=== PATIENT | male | born 1980 | race Caucasian/White ===

== ENCOUNTER 2023-10-12 20:09 | Inpatient (IN) ==
[2023-10-12] MEDS ORDERED: dilTIAZem HCl 5 MG/ML 5 ML VIAL IV ONE (20:52)
[2023-10-12 21:14] LABS: Albumin Globulin Ratio 1.7 (0.9-2); Albumin Level 5.2 gm/dl (3.4-5.0); BUN Creatinine Ratio 15.5 (10-20); Bilirubin,Total 0.3 mg/dl (0.2-1.0); Creatinine Clr Calc Pharmacy 109.7 ml/min; Est GFR (African American) 104.1 ml/min; Est GFR (Non-African American) 89.8 ml/min; Globulin 3.1 gm/dl (2.5-4.0); Potassium 3.5 mmol/L (3.5-5.1); Total Protein 8.3 gm/dl (6.0-8.3)
[2023-10-12 21:32] LABS: Troponin I High Sensitivity 3.7 pg/ml (0-20)
[2023-10-12] MEDS ORDERED: dilTIAZem HCl 5 MG/ML 5 ML VIAL IV STA (21:33)
[2023-10-12] MEDS ORDERED: STAT IV Infusion **Titration per Protocol STA (21:33)
[2023-10-12 21:35] LABS: Basophils # (auto) 0.04 K/uL (0.00-0.20); Basophils % (auto) 0.4 %; Eosinophils # (auto) 0.24 K/uL (0.00-0.50); Eosinophils % (auto) 2.4 %; Hematocrit (blood only) 45.9 % (42.0-52.0); Hemoglobin 15.9 g/dl (14.0-18.0); Immature Granulocytes # (auto) 0.02 K/uL (0.01-0.20); Immature Granulocytes % (auto) 0.2 %; Lymphocytes # (auto) 3.15 K/uL (1.20-3.40); Lymphocytes % (auto) 31.9 %; Mean Corpuscular Hemoglobin 30.6 pg (25.0-34.0); Mean Corpuscular Hgb Conc 34.6 g/dL (32.0-36.0); Mean Corpuscular Volume 88.4 fL (80.0-100.0); Mean Platelet Volume 9.3 fL (9.4-12.4); Monocytes % (auto) 8.1 %; Neutrophils # (auto) 5.64 K/uL (1.40-6.50); Platelet Count 335 K/uL (130-400); RDW Coefficient of Variation 12.1 % (11.5-14.5); RDW Standard Deviation 39.8 fL (36.4-46.3); Red Blood Count 5.19 M/uL (4.70-6.10); White Blood Count 9.89 K/ul (4.8-10.8)
[2023-10-12] MEDS ORDERED: POTASSIUM CHLORIDE / WTR 10 MEQ/100 ML PLCT IV ONE (21:35)
[2023-10-12 21:44] LABS: INR 0.9 (0.9-1.1); Partial Thromboplastin Ratio 0.9; Partial Thromboplastin Time 25.6 Seconds (21.0-31.0); Prothrombin Time 10.2 Seconds (9.0-12.0)
[2023-10-12] MEDS: dilTIAZem HCL 125 MG in DEXTROSE 5% 100 ML IV SCH (21:58)
--- NOTE | 2023-10-12 23:20 | History & Physical Report ---
Date of Service October 12, 2023 Assessment & Plan (1) Rapid atrial fibrillation: Plan: 42M with past med history significant for migraines, presents with palpitations found to be in rapid A-fib. Rapid A-fib New onset ER started on Cardizem drip which will be continued We will start on IV heparin while patient in the hospital Monitoring telemetry Serial cardiac enzymes and echocardiogram Consult cardiology in a.m. DVT prophylaxis IV heparin Disposition telemetry floor Full code History of Present Illness Chief Complaint: Rapid A-fib Primary Care Provider: Art Patel MD 42-year-old male with past med history significant for migraines, presents with palpitations and found to be in rapid A-fib. Patient states around 7 PM he noticed palpitations and felt some lightheaded and as they were not subsiding came to the ER. No chest pain or shortness of breath. No cough. No fevers. No nausea. No abdominal pain. Normal bowel and bladder movements. No blood in the stools or hematuria. Patient states about a year ago he had palpitations and also 1 more time in between but this time they persisted longer time so came to the ER. Had couple of beers yesterday. He states he noticed it happens when he drinks alcohol. Says he jogs every day in the morning Past medical history. As mentioned above Past surgical history. Dental surgery. Social history. . No smoking. Alcohol rarely. Family history. Mother had atrial fibrillation. Brother has hypertension. Maternal grandfather had MN. Paternal grandfather had MN. Allergies Allergy/AdvReac Type Severity Reaction Status Date / Time Penicillins Allergy Intermediate RASH Verified 10/12/23 21:22 Home Medications Medication Instructions Recorded Confirmed Type No Known Home Medications 10/12/23 10/12/23 History Past Med/Surg History Social History Smoking Status: Current some day smoker Hx Alcohol Use: No Hx Substance Use: No Preferred Language: Hebrew Communication Ability: Effective Replenishment Associate Required: No Beliefs That Will Affect Care: None Current Living Situation: Family Feels Safe at Home: Yes Review of Systems Review of Systems: All systems reviewed & are unremarkable except as noted in HPI & below Physical Exam Physical Exam: General- not in distress. Head- atraumatic Eyes- PERRL. ENT- oropharynx clear Neck- supple, no JVD. Lungs- clear to auscultation, no wheezing or crackles. Heart- irregular rhythm;tachycardia, no murmur, no gallop. Abdomen- normal bowel sounds, soft, nontender, no distension. Extremities- no pretibial edema, no erythema seen. Neuro- alert, oriented x 3; PERRL, no facial palsy; no dysarthria; moves extremities. Skin- warm & dry Results & Data Results & Data Vital Signs (Past 12 Hours) Vital Signs Temp Pulse Pulse Resp BP BP Pulse Ox 10/12/23 22:44 139 H 19 126/96 98 10/12/23 22:36 135 H 19 126/96 97 10/12/23 22:14 147 H 19 131/87 97 10/12/23 22:03 146 H 19 109/81 98 10/12/23 21:02 167 H 19 120/87 100 10/12/23 20:50 156 H 10/12/23 20:27 36.3 C L 101 H 20 129/78 98 O2 Del Method 10/12/23 22:44 Room Air 10/12/23 22:36 Room Air 10/12/23 22:14 Room Air 10/12/23 22:03 Room Air 10/12/23 21:02 Room Air 10/12/23 20:50 10/12/23 20:27 Room Air Diagnostic Findings Laboratory Results WBC 9.89 K/ul (4.8-10.8) 10/12/23 20:40 RBC 5.19 M/uL (4.70-6.10) 10/12/23 20:40 Hgb 15.9 g/dl (14.0-18.0) 10/12/23 20:40 Hct 45.9 % (42.0-52.0) 10/12/23 20:40 MCV 88.4 fL (80.0-100.0) 10/12/23 20:40 MCH 30.6 pg (25.0-34.0) 10/12/23 20:40 MCHC 34.6 g/dL (32.0-36.0) 10/12/23 20:40 RDW Std Deviation 39.8 fL (36.4-46.3) 10/12/23 20:40 RDW Coeff of Pia 12.1 % (11.5-14.5) 10/12/23 20:40 Plt Count 335 K/uL (130-400) 10/12/23 20:40 MPV 9.3 fL (9.4-12.4) L 10/12/23 20:40 Immature Gran % (Auto) 0.2 % 10/12/23 20:40 Neut % (Auto) 57.0 % 10/12/23 20:40 Lymph % (Auto) 31.9 % 10/12/23 20:40 [place] % (Auto) 8.1 % 10/12/23 20:40 Eos % (Auto) 2.4 % 10/12/23 20:40 Baso % (Auto) 0.4 % 10/12/23 20:40 Neut # (Auto) 5.64 K/uL (1.40-6.50) 10/12/23 20:40 Lymph # (Auto) 3.15 K/uL (1.20-3.40) 10/12/23 20:40 [place] # (Auto) 0.80 K/uL (0.11-0.59) H 10/12/23 20:40 Eos # (Auto) 0.24 K/uL (0.00-0.50) 10/12/23 20:40 Baso # (Auto) 0.04 K/uL (0.00-0.20) 10/12/23 20:40 Immature Gran # (Auto) 0.02 K/uL (0.01-0.20) 10/12/23 20:40 PT 10.2 Seconds (9.0-12.0) 10/12/23 20:40 INR 0.9 (0.9-1.1) 10/12/23 20:40 APTT 25.6 Seconds (21.0-31.0) 10/12/23 20:40 PTT Ratio 0.9 10/12/23 20:40 Sodium 140 mmol/L (136-145) 10/12/23 20:40 Potassium 3.5 mmol/L (3.5-5.1) 10/12/23 20:40 Chloride 104 mmol/L (98-107) 10/12/23 20:40 Carbon Dioxide 25 mmol/L (21-32) 10/12/23 20:40 Anion Gap 11 (3-11) 10/12/23 20:40 BUN 16 mg/dl (6-23) 10/12/23 20:40 Creatinine 1.03 mg/dl (0.6-1.4) 10/12/23 20:40 Est Cr Clr Drug Dosing 109.7 ml/min 10/12/23 20:40 Est GFR ( Amer) 104.1 ml/min 10/12/23 20:40 Est GFR (Non-Af Amer) 89.8 ml/min 10/12/23 20:40 BUN/Creatinine Ratio 15.5 (10-20) 10/12/23 20:40 Glucose 89 mg/dl (70-99(Fasting)) 10/12/23 20:40 Calcium 10.0 mg/dl (8.6-10.3) 10/12/23 20:40 Magnesium 2.0 mg/dl (1.7-2.4) 10/12/23 20:40 Total Bilirubin 0.3 mg/dl (0.2-1.0) 10/12/23 20:40 AST 20 U/L (13-39) 10/12/23 20:40 ALT 16 U/L (7-52) 10/12/23 20:40 Alkaline Phosphatase 83 U/L (34-104) 10/12/23 20:40 Troponin I High Sens 3.7 pg/ml (0-20) 10/12/23 20:40 Total Protein 8.3 gm/dl (6.0-8.3) 10/12/23 20:40 Albumin 5.2 gm/dl (3.4-5.0) H 10/12/23 20:40 Globulin 3.1 gm/dl (2.5-4.0) 10/12/23 20:40 Albumin/Globulin Ratio 1.7 (0.9-2) 10/12/23 20:40 ECG Additional Comments: ECG. Atrial fibrillation with rapid ventricular response rate of 154. ST depression inferior leads Code Status & VTE Plan VTE Prophylaxis Plan VTE Prophylaxis will be ordered: Yes
[2023-10-13] MEDS ORDERED: POLYETHYLENE (MIRALAX) 17 GM PACK PO PRN (00:30)
[2023-10-13] MEDS ORDERED: NITROGLYCERIN SL 0.4 MG/TAB TAB SL PRN (00:30)
[2023-10-13] MEDS ORDERED: dilTIAZem HCL 125 MG in DEXTROSE 5% 100 ML IV SCH (00:30)
[2023-10-13] MEDS ORDERED: STAT IV Infusion **Titration per Protocol STA (00:30)
[2023-10-13] MEDS ORDERED: SODIUM CHLORIDE 0.9% 1,000 ML IV SCH (00:30)
[2023-10-13] MEDS ORDERED: Heparin IV Adult Wt-Based Standard *NO* Bolus Protocol IV STA (00:30)
[2023-10-13] MEDS ORDERED: ACETAMINOPHEN 325 MG TAB PO PRN (00:30)
--- NOTE | 2023-10-13 00:40 | Emergency Department Note ---
Impression & Plan Rapid atrial fibrillation ED Provider Note NAME: LIZ ISAAC AGE: 42 SEX: Male INFORMANT: Patient ED PROVIDER(S): Harrison Ivey MD CHIEF COMPLAINT: Palpitation PLAN: Disposition: Admitted Outpatient prescription management: none Referral: None MEDICAL DECISION MAKING: Patient presented because of palpitations. Cardiac monitoring and ECG revealed presence of rapid atrial fibrillation. Patient blood work obtained. Unremarkable CBC and chemistry panel except for a low normal potassium. Patient was given IV potassium and started on the IV Cardizem bolus and drip. This required titration for rate control. Patient has unremarkable labs otherwise. He will need further management in the hospital. Patient in agreement. Consultation was [facility] with the [facility]. Case was discussed and diagnostics were reviewed with Dr. Cobb. Consideration for anticoagulation deferred to internal medicine. Care/management discussed with: email marketing manager Level of care consideration(s): After review of the information above and other included data, I feel the patient requires escalation of care to admission. Triage Nursing notes: reviewed and agree them. Vital Signs: reviewed and remarkable for significant tachycardia Additional History obtained from: none Chronic Medical/Social Conditions affecting care: none Prior/ Outside/ External records reviewed: none Differential Diagnosis: Premature contractions, electrolyte abnormality, cardiac dysrhythmia, thyroid dysfunction, pulmonary embolism, infection, gastrointestinal, as well as other pathologies. Diagnostics, independently interpreted by me: ECG: Twelve-lead ECG reveals rapid atrial fibrillation at a rate of [address] elevation. Cardiac Monitoring: Cardiac monitoring ordered by me: The patient was placed on continuous cardiac monitoring and observed. It revealed a rapid atrial fibrillation at 178 bpm Medical decision rules: none Imaging studies: Chest x-ray. Findings: A chest x-ray was performed and revealed no pneumothorax, effusion, infiltrate, pulmonary edema, free air under the diaphragm, or wide mediastinum. Impression: No acute disease. HPI: 42 year old Male arrives for evaluation of palpitations. Patient states this started today. Approximate about 7 PM. Patient notes a few intermittent episodes in the past. Patient does note having some alcohol yesterday and again today. Patient felt somewhat lightheaded. He felt his heart racing. Symptoms today did not go away so he came to the ER for further evaluation. Pt denies LOC, headache, fevers, chills, diaphoresis, visual changes, neck pain, chest pain, breathing difficulties, nausea, vomiting, abdominal pain, back pain, melena, hematochezia, urinary symptoms, numbness, weakness, lymphadenopathy, rash, or other complaints. PAST MEDICAL HISTORY: See Below, PAST SURGICAL HISTORY: See Below, SOCIAL HISTORY: See Below, occasional alcohol. . HOME MEDICATIONS: See Below ALLERGIES: See Below VITALS: See Below PHYSICAL EXAMINATION: GENERAL: Awake, alert, well-appearing, in no distress HENT: Normocephalic, atraumatic. Oropharynx unremarkable. EYES: Normal conjunctiva. Sclera non-icteric. NECK: Inspection normal. Non-tender. Supple. No nuchal rigidity. FROM. No masses. RESPIRATORY: Clear to auscultation. No wheezes. No rales. Normal respiratory effort. CARDIAC: Tachycardic rate. Irregular rhythm. No murmurs. No rubs. Extremities warm and well perfused. Pulses equal. No JVD. GI: Soft, non-distended. No tenderness to palpation. No rebound or guarding. No masses. RECTAL: Deferred. MUSCULOSKELETAL: Atraumatic. Chest examination reveals no tenderness. The back is symmetrical on inspection without obvious abnormality. There is no CVA tenderness to palpation. No joint edema. LOWER EXTREMITIES: Calves are equal size bilaterally and non-tender. No edema. No discoloration. NEURO: Normal sensorium. No sensory or motor deficits noted. SKIN: No rash or jaundice noted. PROCEDURES: none CRITICAL CARE: I have personally spent 30 minutes of critical care time in the direct management of this patient. This includes bedside care, interpretation of diagnostic studies, and testing, discussion with consultants, patient, and family members, and other required patient management activities. This 30 minutes is in excess of all separately billable procedures. OBSERVATION NOTE: none Past Med/Surg History Social History Smoking Status: Current some day smoker Hx Alcohol Use: No Hx Substance Use: No Preferred Language: Maori Communication Ability: Effective Crankshaft Balancer Required: No Beliefs That Will Affect Care: None Current Living Situation: Family Feels Safe at Home: Yes Allergies Allergies Allergy/AdvReac Type Severity Reaction Status Date / Time Penicillins Allergy Intermediate RASH Verified 10/12/23 21:22 Home Meds Home Medications Medication Instructions Recorded Confirmed No Known Home Medications 10/12/23 10/12/23 Results & Data (ED) Vital Signs Vital Signs - 24 hr 10/12/23 20:27 10/12/23 20:50 10/12/23 21:02 Temperature 36.3 C L Temperature Source Temporal Artery Scan Pulse Rate 101 H 156 H Pulse Rate [Right Finger] 167 H Pulse Rhythm Regular Pulse Strength Normal Respiratory Rate 20 19 Respiratory Effort / Characteristics Non-Labored Spontaneous Non-Labored Respiratory Depth Normal Normal Blood Pressure 129/78 Blood Pressure [Right Arm] 120/87 Blood Pressure Mean 95 Blood Pressure Mean [Right Arm] 98 Blood Pressure Position Sitting Pulse Oximetry 98 100 Oxygen Delivery Method Room Air Room Air Sepsis Recent Fever Within 48 Hours No Sepsis New/Unexplained Change in Mental Status N/A Sepsis Action Taken by Nursing No Action Required 10/12/23 22:03 10/12/23 22:14 10/12/23 22:36 Temperature Temperature Source Pulse Rate Pulse Rate [Right Finger] 146 H 147 H 135 H Pulse Rhythm Pulse Strength Respiratory Rate 19 19 19 Respiratory Effort / Characteristics Non-Labored Spontaneous Non-Labored Spontaneous Respiratory Depth Normal Normal Blood Pressure Blood Pressure [Right Arm] 109/81 131/87 126/96 Blood Pressure Mean Blood Pressure Mean [Right Arm] 90 101 106 Blood Pressure Position Pulse Oximetry 98 97 97 Oxygen Delivery Method Room Air Room Air Room Air Sepsis Recent Fever Within 48 Hours Sepsis New/Unexplained Change in Mental Status Sepsis Action Taken by Nursing 10/12/23 22:44 Temperature Temperature Source Pulse Rate Pulse Rate [Right Finger] 139 H Pulse Rhythm Pulse Strength Respiratory Rate 19 Respiratory Effort / Characteristics Non-Labored Respiratory Depth Normal Blood Pressure Blood Pressure [Right Arm] 126/96 Blood Pressure Mean Blood Pressure Mean [Right Arm] 106 Blood Pressure Position Pulse Oximetry 98 Oxygen Delivery Method Room Air Sepsis Recent Fever Within 48 Hours Sepsis New/Unexplained Change in Mental Status Sepsis Action Taken by Nursing Laboratory Data 10/12/23 20:40 10/12/23 20:40 Lab Results 10/12/23 Range/Units 20:40 WBC 9.89 (4.8-10.8) K/ul RBC 5.19 (4.70-6.10) M/uL Hgb 15.9 (14.0-18.0) g/dl Hct 45.9 (42.0-52.0) % MCV 88.4 (80.0-100.0) fL MCH 30.6 (25.0-34.0) pg MCHC 34.6 (32.0-36.0) g/dL RDW Std Deviation 39.8 (36.4-46.3) fL RDW Coeff of Pia 12.1 (11.5-14.5) % Plt Count 335 (130-400) K/uL MPV 9.3 L (9.4-12.4) fL Immature Gran % (Auto) 0.2 % Neut % (Auto) 57.0 % Lymph % (Auto) 31.9 % [place] % (Auto) 8.1 % Eos % (Auto) 2.4 % Baso % (Auto) 0.4 % Neut # (Auto) 5.64 (1.40-6.50) K/uL Lymph # (Auto) 3.15 (1.20-3.40) K/uL [place] # (Auto) 0.80 H (0.11-0.59) K/uL Eos # (Auto) 0.24 (0.00-0.50) K/uL Baso # (Auto) 0.04 (0.00-0.20) K/uL Immature Gran # (Auto) 0.02 (0.01-0.20) K/uL PT 10.2 (9.0-12.0) Seconds INR 0.9 (0.9-1.1) APTT 25.6 (21.0-31.0) Seconds PTT Ratio 0.9 Sodium 140 (136-145) mmol/L Potassium 3.5 (3.5-5.1) mmol/L Chloride 104 (98-107) mmol/L Carbon Dioxide 25 (21-32) mmol/L Anion Gap 11 (3-11) BUN 16 (6-23) mg/dl Creatinine 1.03 (0.6-1.4) mg/dl Est Cr Clr Drug Dosing 109.7 ml/min Est GFR ( Amer) 104.1 ml/min Est GFR (Non-Af Amer) 89.8 ml/min BUN/Creatinine Ratio 15.5 (10-20) Glucose 89 (70-99(Fasting)) mg/dl Calcium 10.0 (8.6-10.3) mg/dl Magnesium 2.0 (1.7-2.4) mg/dl Total Bilirubin 0.3 (0.2-1.0) mg/dl AST 20 (13-39) U/L ALT 16 (7-52) U/L Alkaline Phosphatase 83 (34-104) U/L Troponin I High Sens 3.7 (0-20) pg/ml Total Protein 8.3 (6.0-8.3) gm/dl Albumin 5.2 H (3.4-5.0) gm/dl Globulin 3.1 (2.5-4.0) gm/dl Albumin/Globulin Ratio 1.7 (0.9-2) Administered Medications Diltiazem HCl 125 mg/ Dextrose 125 mls @ 5 mls/hr IV .Q24H ANAT; Protocol Stop: 11/11/23 21:44 Last Titration: 10/12/23 23:00 Dose: 15 mg/hr, 15 mls/hr Documented By: SHY Co-signed By: ASW Titration: 10/12/23 22:14 Dose: 10 mg/hr, 10 mls/hr Documented By: ASW Co-signed By: KAROLINE Admin: 10/12/23 21:58 Dose: 5 mg/hr, 5 mls/hr Documented By: ASW Co-signed By: KAROLINE Discontinued Medications Diltiazem HCl (Diltiazem Hcl 5 Mg/Ml 5 Ml Vial) Confirm Administered Dose 25 mg IV .STK-MED ONE Stop: 10/12/23 20:53 Last Increment: 10/12/23 21:37 Dose: 10 mg Documented By: ASW Co-signed By: AVIVA Diltiazem HCl (Diltiazem Hcl 5 Mg/Ml 5 Ml Vial) 10 mg IV NOW STA Stop: 10/12/23 21:34 Last Admin: 10/12/23 21:37 Dose: Not Given Documented By: ASW Potassium Chloride (K Ba / Wtr) 10 meq in 100 mls @ 100 mls/hr IV ONE ONE; Protocol Stop: 10/12/23 22:34 Last Infusion: 10/12/23 23:30 Dose: Infused Documented By: Admin: 10/12/23 22:29 Dose: 100 mls/hr Documented By: ASW Miscellaneous (Stat Iv Infusion Titration Per Protocol) 1 each N/A NOW STA Stop: 10/12/23 21:34 Last Admin: 10/12/23 22:17 Dose: Not Given Documented By: ASW Discharge Plan Visit Data Chief Complaint: Arrhythmia/Palpitations Stated Complaint: IRREGULAR HEART RATE ED Provider: Harrison Ivey Discharge Problem: Rapid atrial fibrillation Patient Disposition: Admitted As Inpatient Discharge Instructions Interventions: ED Discharge Assessment Last Done: 10/13/23 00:31
[2023-10-13] MEDS: HEPARIN SODIUM/DEXTROSE 25,000 UNITS/500 ML BAG IV SCH ×2 (01:13→17:45)
[2023-10-13 04:57] LABS: Basophils # (auto) 0.03 K/uL (0.00-0.20); Basophils % (auto) 0.3 %; Eosinophils # (auto) 0.11 K/uL (0.00-0.50); Eosinophils % (auto) 1.1 %; Hemoglobin 13.9 g/dl (14.0-18.0); Immature Granulocytes # (auto) 0.01 K/uL (0.01-0.20); Immature Granulocytes % (auto) 0.1 %; Lymphocytes # (auto) 3.31 K/uL (1.20-3.40); Lymphocytes % (auto) 34.4 %; Mean Corpuscular Hemoglobin 30.5 pg (25.0-34.0); Mean Corpuscular Hgb Conc 34.8 g/dL (32.0-36.0); Mean Corpuscular Volume 87.7 fL (80.0-100.0); Mean Platelet Volume 9.2 fL (9.4-12.4); Monocytes # (auto) 0.82 K/uL (0.11-0.59); Monocytes % (auto) 8.5 %; Neutrophils # (auto) 5.34 K/uL (1.40-6.50); Neutrophils % (auto) 55.6 %; Platelet Count 297 K/uL (130-400); RDW Coefficient of Variation 12.2 % (11.5-14.5); RDW Standard Deviation 39.4 fL (36.4-46.3); Red Blood Count 4.56 M/uL (4.70-6.10); White Blood Count 9.62 K/ul (4.8-10.8)
[2023-10-13 05:07] LABS: BUN Creatinine Ratio 15.8 (10-20); Calcium 8.8 mg/dl (8.6-10.3); Creatinine Clr Calc Pharmacy 148.7 ml/min; Est GFR (African American) 131.3 ml/min; Est GFR (Non-African American) 113.3 ml/min; Potassium 3.8 mmol/L (3.5-5.1)
[2023-10-13 05:13] LABS: Troponin I High Sensitivity 3.7 pg/ml (0-20)
--- NOTE | 2023-10-13 07:30 | Cardiology Progress Note ---
Date of Service October 13, 2023 Assessment & Plan Admission and Anticipated Discharge Date Admission Date: October 12, 2023 Review of Systems Review of Systems: All systems reviewed & are unremarkable except as noted in HPI & below Results & Data Vital Signs (Past 12 Hours) Vital Signs Temp Pulse Pulse Resp BP BP Pulse Ox 10/13/23 04:21 36.7 C 71 14 113/97 99 10/13/23 02:11 93 H 10/13/23 00:48 107 H 12 124/84 96 10/13/23 00:30 95 H 12 119/85 10/12/23 22:44 139 H 19 126/96 98 10/12/23 22:36 135 H 19 126/96 97 10/12/23 22:14 147 H 19 131/87 97 10/12/23 22:03 146 H 19 109/81 98 10/12/23 21:02 167 H 19 120/87 100 10/12/23 20:50 156 H 10/12/23 20:27 36.3 C L 101 H 20 129/78 98 O2 Del Method 10/13/23 04:21 Room Air 10/13/23 02:11 10/13/23 00:48 Room Air 10/13/23 00:30 10/12/23 22:44 Room Air 10/12/23 22:36 Room Air 10/12/23 22:14 Room Air 10/12/23 22:03 Room Air 10/12/23 21:02 Room Air 10/12/23 20:50 10/12/23 20:27 Room Air Laboratory Results Cardiac Enzymes 10/12/23 10/13/23 Range/Units 20:40 04: AST 20 (13-39) U/L Troponin I High Sens 3.7 3.7 (0-20) pg/ml Coagulation 10/12/23 Range/Units 20:40 PT 10.2 (9.0-12.0) Seconds APTT 25.6 (21.0-31.0) Seconds CBC 10/12/23 10/13/23 Range/Units 20:40 04:23 WBC 9.89 9.62 (4.8-10.8) K/ul RBC 5.19 4.56 L (4.70-6.10) M/uL Hgb 15.9 13.9 L (14.0-18.0) g/dl Hct 45.9 40.0 L (42.0-52.0) % Plt Count 335 297 (130-400) K/uL Neut # (Auto) 5.64 5.34 (1.40-6.50) K/uL Lymph # (Auto) 3.15 3.31 (1.20-3.40) K/uL [place] # (Auto) 0.80 H 0.82 H (0.11-0.59) K/uL Eos # (Auto) 0.24 0.11 (0.00-0.50) K/uL Baso # (Auto) 0.04 0.03 (0.00-0.20) K/uL Comprehensive Metabolic Panel 10/12/23 10/13/23 Range/Units 20:40 04:23 Sodium 140 140 (136-145) mmol/L Potassium 3.5 3.8 (3.5-5.1) mmol/L Chloride 104 107 (98-107) mmol/L Carbon Dioxide 25 25 (21-32) mmol/L BUN 16 12 (6-23) mg/dl Creatinine 1.03 0.76 (0.6-1.4) mg/dl Glucose 89 103 H (70-99(Fasting)) mg/dl Calcium 10.0 8.8 (8.6-10.3) mg/dl AST 20 (13-39) U/L ALT 16 (7-52) U/L Alkaline Phosphatase 83 (34-104) U/L Total Protein 8.3 (6.0-8.3) gm/dl Albumin 5.2 H (3.4-5.0) gm/dl Intake and Output 10/12/23 10/13/23 10/13/23 22:59 06:59 14:59 Intake Total 1.333 / 180.417 179.084 / 180.417 198.934 / 198.934 Balance 1.333 / 180.417 179.084 / 180.417 198.934 / 198.934 Intake: IV 1.333 / 180.417 179.084 / 180.417 198.934 / 198.934 Heparin Sodium/Dextrose 25,000 186.517 / 186.517 units In 500 ml @ 1,550 UNITS/ HR 31 mls/hr IV .[id number] [facility] Rx# :[id number] Potassium Chloride / Wtr 10 meq 100 / 100 In 100 ml @ 100 mls/hr IV ONE ONE Rx#:[id number] dilTIAZem HCL 125 mg In 1.333 / 80.417 79.084 / 80.417 12.417 / 12.417 Dextrose 5% 100 ml @ 10 MG/HR 10 mls/hr IV .[id number] [facility] Rx#: [id number] Oral 0 / 0 Other: # Unmeasured Voids 1 Weight 88.9 kg 88.9 kg Weight Measurement Method [facility] Medications Administered Current Inpatient Medications Acetaminophen (Acetaminophen 325 Mg Tab) 650 mg PO Q4H PRN PRN Reason: Pain or Fever Stop: 11/12/23 00:29 Diltiazem HCl 125 mg/ Dextrose 125 mls @ 10 mls/hr IV .[id number] [facility]; Protocol Stop: 11/11/23 21:44 Last Titration: 10/13/23 07:14 Dose: 5 mg/hr, 5 mls/hr Sodium Chloride (Nss) 1,000 mls @ 80 mls/hr IV .[id number] [facility] Stop: 10/13/23 12:59 Last Admin: 10/13/23 01:11 Dose: 80 mls/hr Heparin Sodium/Dextrose (Heparin Sodium/Dextrose) 25,000 units in 500 mls @ 31 mls/hr IV .Q16H8M [facility]; Protocol Stop: 11/12/23 00:29 Last Titration: 10/13/23 07:14 Dose: 1,550 units/hr, 31 mls/hr Nitroglycerin (Nitroglycerin Sl 0.4 Mg/Tab Tab) 0.4 mg SL Q5M PRN PRN Reason: Chest Pain Stop: 11/12/23 00:29 Polyethylene Glycol (Polyethylene (Miralax) 17 Gm Pack) 17 gm PO DAILY PRN PRN Reason: Constipation Stop: 11/12/23 00:29
--- NOTE | 2023-10-13 08:07 | XRay Report ---
XR chest 1V not portable CLINICAL HISTORY: Chest pain, nonspecific TECHNIQUE: Single frontal radiograph of the chest was obtained. Comparison: None available at the time of this dictation. FINDINGS: No lines and tubes are seen. The cardiomediastinal silhouette is normal. The lungs are clear. No evid ence of pleural effusion or pneumothorax. IMPRESSION: No acute chest disease. ACT 112: Negative or not required by law. Electronically signed by: Oz Craig M.D. 10/13/2023 8:06 AM
--- NOTE | 2023-10-13 08:16 | Electrocardiogram Report ---
Test Reason : Blood Pressure : / mmHG Vent. Rate : 160 BPM Atrial Rate : 000 BPM P-R Int : 000 ms QRS Dur : 086 ms QT Int : 236 ms P-R-T Axes : 000 090 001 degrees QTc Int : 385 ms Atrial fibrillation with rapid ventricular response Rightward axis Abnormal ECG When compared with ECG of 30-JUN-2015 13:03, Atrial fibrillation has replaced Sinus rhythm Vent. rate has increased BY 67 BPM Confirmed by Keshav Arellano ([id number]) on 10/13/2023 8:15:44 AM Referred By: REFERRED SELF Confirmed By:Keshav Arellano
--- NOTE | 2023-10-13 08:16 | Electrocardiogram Report ---
Test Reason : Blood Pressure : / mmHG Vent. Rate : 090 BPM Atrial Rate : 088 BPM P-R Int : 000 ms QRS Dur : 108 ms QT Int : 346 ms P-R-T Axes : 000 095 036 degrees QTc Int : 423 ms Atrial fibrillation Rightward axis Baseline artifact Abnormal ECG When compared with ECG of 12-OCT-2023 20:56, Vent. rate has decreased BY 70 BPM Confirmed by Keshav Arellano ([id number]) on 10/13/2023 8:16:21 AM Referred By: REFERRED SELF Confirmed By:Keshav Arellano
[2023-10-13 08:41] LABS: Partial Thromboplastin Ratio 1.8
[2023-10-13 08:43] LABS: Partial Thromboplastin Time 52.1 Seconds (21.0-31.0)
--- NOTE | 2023-10-13 09:05 | Cardiology Consultation ---
Date of Consultation October 13, 2023 Assessment & Plan (1) New onset atrial fibrillation: (2) Atrial fibrillation with RVR: (3) Family history of atrial fibrillation: Supervising Physician Co-Signing Physician Notes Attending Staff: Pt seen and examined with AP Staff Concur with observations and plans 42 yo man presenting with palpitations and lightheadedness * ETOH use * EKG - afib RVR * Ventricular rate 160 BPM * IV Cardizem + Heparin * CXR - clear * EKG * Troponin - negative * K+ 3.5 * Mag 2 * TSH is pending * Tox - Pending * No OTC meds * No OTC stimulants Events Overnight: -Telemetry - afib with RVR Subjective: -No complaints Plans: * Pt remains in Afib * ECHO - Pending * TSH - pending * Tox - will discuss with patient * On Diltiazem - 10 mg/hr * Kdur 40 meq po BID with option for additional K+ * PM BMP * 4 gm Magnesium Sulfate * Lopressor 25 mg po X 1; option for additional beta blockade * Will follow up in PM * + Strong family hx of Afib * No sx of CVA * CHADs Vasc - 0 * Ultimately, ASA 81 mg po per day for anticoagulation * Follow with Neri Thornton History of Present Illness Reason for Consultation: New onset atrial fibrillation Requesting Physician: Dr. Cobb Attending Physician: Dr. Padron. History of Present Illness 42 year old male presented to the ER on 10/13/2023 with tachypalpitations associated with lightheadedness that started around 7 PM on 10/12/2023 + EtOH consumption EKG revealed atrial fibrillation with a RVR (160 bpm) with rightward axis. Cardizem drip and IV heparin initiated. CXR: No acute chest disease Troponin 3.7 -> 3.7 pg/mL Potassium 3.5 mmol/L, receiving one K+ rider, 3.8 mmol/L this AM Magnesium 2.0. WBC normal. H&H 15.9 & 45.9. Plt Count 335. EKG this AM: Atrial fibrillation at 90 bpm, QTc 423 ms. Longstanding history of palpitations circa 10 years - Sinus tachycardia noted in the ER in May 2015, possibly precipitated by caffeine use - CHRYSTAL negative for inducible ischemia with no arrhythmias with stress, structurally normal heart, July 2015 - Holter in 2015 revealed sinus with an average heart rate of 69 bpm. Very rare PACs. No PVCs. Multiple episodes of dizziness correlated with sinus rhythm. - Mother and aunts with atrial fibrillation, paternal grandfather with CAD Allergies Allergy/AdvReac Type Severity Reaction Status Date / Time Penicillins Allergy Intermediate RASH Verified 10/12/23 21:22 Home Medications Medication Instructions Recorded Confirmed Type No Known Home Medications 10/12/23 10/12/23 History Patient History Social History Smoking Status: Current some day smoker Hx Alcohol Use: No Hx Substance Use: No Preferred Language: Serbian Communication Ability: Effective Level Vial Inspector And Tester Required: No Beliefs That Will Affect Care: None Current Living Situation: Family Feels Safe at Home: Yes Review of Systems Review of Systems: All systems reviewed & are unremarkable except as noted in HPI & below Complete Review of Systems is as stated above, negative, or noncontributory. Physical Exam Physical Exam: As per Attending Friction Saw Operator Dr. Thornton No Elevation in JVP S1S2 No Murmur CTA B No C/C/E Warm and perfusing Results & Data Vital Signs (Past 12 Hours) Vital Signs Temp Pulse Pulse Resp BP Pulse Ox O2 Del Method 10/13/23 04:21 36.7 C 71 14 113/97 99 Room Air 10/13/23 02:11 93 H 10/13/23 00:48 107 H 12 124/84 96 Room Air 10/13/23 00:30 95 H 12 119/85 10/12/23 22:44 139 H 19 126/96 98 Room Air 10/12/23 22:36 135 H 19 126/96 97 Room Air 10/12/23 22:14 147 H 19 131/87 97 Room Air 10/12/23 22:03 146 H 19 109/81 98 Room Air Laboratory Results Cardiac Enzymes 10/12/23 10/13/23 Range/Units 20:40 04:23 AST 20 (13-39) U/L Troponin I High Sens 3.7 3.7 (0-20) pg/ml Coagulation 10/12/23 10/13/23 Range/Units 20:40 07:03 PT 10.2 (9.0-12.0) Seconds APTT 25.6 52.1 H* (21.0-31.0) Seconds CBC 10/12/23 10/13/23 Range/Units 20:40 04:23 WBC 9.89 9.62 (4.8-10.8) K/ul RBC 5.19 4.56 L (4.70-6.10) M/uL Hgb 15.9 13.9 L (14.0-18.0) g/dl Hct 45.9 40.0 L (42.0-52.0) % Plt Count 335 297 (130-400) K/uL Neut # (Auto) 5.64 5.34 (1.40-6.50) K/uL Lymph # (Auto) 3.15 3.31 (1.20-3.40) K/uL [place] # (Auto) 0.80 H 0.82 H (0.11-0.59) K/uL Eos # (Auto) 0.24 0.11 (0.00-0.50) K/uL Baso # (Auto) 0.04 0.03 (0.00-0.20) K/uL Comprehensive Metabolic Panel 10/12/23 10/13/23 Range/Units 20:40 04:23 Sodium 140 140 (136-145) mmol/L Potassium 3.5 3.8 (3.5-5.1) mmol/L Chloride 104 107 (98-107) mmol/L Carbon Dioxide 25 25 (21-32) mmol/L BUN 16 12 (6-23) mg/dl Creatinine 1.03 0.76 (0.6-1.4) mg/dl Glucose 89 103 H (70-99(Fasting)) mg/dl Calcium 10.0 8.8 (8.6-10.3) mg/dl AST 20 (13-39) U/L ALT 16 (7-52) U/L Alkaline Phosphatase 83 (34-104) U/L Total Protein 8.3 (6.0-8.3) gm/dl Albumin 5.2 H (3.4-5.0) gm/dl Intake and Output 10/12/23 10/13/23 10/13/23 22:59 06:59 14:59 Intake Total 1.333 / 180.417 179.084 / 180.417 203.351 / 203.351 Balance 1.333 / 180.417 179.084 / 180.417 203.351 / 203.351 Intake: IV 1.333 / 180.417 179.084 / 180.417 203.351 / 203.351 Heparin Sodium/Dextrose 25,000 186.517 / 186.517 units In 500 ml @ 1,550 UNITS/ HR 31 mls/hr IV .[id number] [facility] Rx# :[id number] Potassium Chloride / Wtr 10 meq 100 / 100 In 100 ml @ 100 mls/hr IV ONE ONE Rx#:[id number] dilTIAZem HCL 125 mg In 1.333 / 80.417 79.084 / 80.417 16.834 / 16.834 Dextrose 5% 100 ml @ 10 MG/HR 10 mls/hr IV .[id number] [facility] Rx#: [id number] Oral 0 / 0 Other: # Unmeasured Voids 1 Weight 88.9 kg 88.9 kg Weight Measurement Method Chair Scale Built in Bedscale
[2023-10-13] MEDS ORDERED: POTASSIUM CHLORIDE CRTAB 20 MEQ TABCR PO STA ×2 (09:58→17:43)
[2023-10-13] MEDS: dilTIAZem HCL 125 MG in DEXTROSE 5% 100 ML IV SCH ×2 (10:15→18:21)
[2023-10-13] MEDS: METOPROLOL TARTRATE 25 MG TAB PO SCH (11:10)
[2023-10-13] MEDS: MAGNESIUM SULFATE / D5W 1 GM/100 ML BAG IV SCH ×2 (11:12→14:00)
--- NOTE | 2023-10-13 16:01 | Hospitalist Progress Note ---
Date of Service October 13, 2023 Assessment & Plan (1) Rapid atrial fibrillation: Plan: 42M with past med history significant for migraines, presents with palpitations found to be in rapid A-fib. Rapid A-fib New onset ER started on Cardizem drip which will be continued We will start on IV heparin while patient in the hospital Monitoring telemetry-remains in atrial fibrillation but the rate is seems to be controlled Serial cardiac enzymes are unremarkable Echocardiogram-LV is normal in size, EF 55 to 60%, RV systolic function is normal, left atrial size is normal, right atrial size and normal, there is mitral mild mitral regurgitation Consult cardiology -appreciate input and recommendation We will continue Cardizem drip for now Metoprolol tartrate has been added We will check and correct electrolytes DVT prophylaxis IV heparin Disposition telemetry floor Full code Admission and Anticipated Discharge Date Admission Date: October 12, 2023 Subjective 10/13/2023 The patient was seen and examined in ICU in the setting of PCU He was admitted with palpitation and dizziness with ambulation and also frequency of micturition Noted to have A-fib with RVR Has been feeling much better with decreasing heart rate since admission Denies any other symptom Review of Systems Review of Systems: All systems reviewed and are unremarkable except as noted below Physical Exam 2 Physical Exam: Lying in bed comfortably Constitutional: average body habitus; not ill appearing Eyes: PERRL, conjunctivae normal, anicteric sclerae ENMT: external ear and nose normal, oropharynx normal Neck: trachea midline, no thyromegaly Respiratory: no respiratory distress Auscultation: lungs clear to auscultation bilaterally Cardiovascular: Rate/Rhythm: + irregularly irregular; not tachycardic Heart Sounds: normal S1 and normal S2; no murmur Extremities: no edema Gastrointestinal (Abdomen): Inspection/Auscultation: normal bowel sounds; abdomen not distended Percussion/Palpation: abdomen soft; abdomen nontender Musculoskeletal: No acute arthritis involving any of the joint Neurologic: normal touch/pain/proprioception and moves all extremities; no focal motor deficits Psychiatric: A+Ox3, euthymic affect Lymphatic: no cervical or axillary lymphadenopathy Results & Data Results & Data Vital Signs (Past 12 Hours) Vital Signs Temp Pulse Pulse Resp BP BP Pulse Ox 10/13/23 15:43 36.9 C 10/13/23 15:00 89 21 115/70 95 10/13/23 14:00 80 18 111/71 94 10/13/23 13:00 73 15 110/72 94 10/13/23 12:00 76 20 117/78 97 10/13/23 11:00 86 16 130/74 95 10/13/23 10:41 88 14 114/78 96 10/13/23 10:00 93 H 20 115/78 95 10/13/23 08:00 110 H 13 97/68 L 97 10/13/23 06:45 87 19 96 10/13/23 04:21 36.7 C 71 14 113/97 99 O2 Del Method 10/13/23 15:43 10/13/23 15:00 Room Air 10/13/23 14:00 10/13/23 13:00 Room Air 10/13/23 12:00 10/13/23 11:00 Room Air 10/13/23 10:41 10/13/23 10:00 Room Air 10/13/23 08:00 Room Air 10/13/23 06:45 Room Air 10/13/23 04:21 Room Air Laboratory Results Short CBC 10/12/23 10/13/23 Range/Units 20:40 04:23 WBC 9.89 9.62 (4.8-10.8) K/ul Hgb 15.9 13.9 L (14.0-18.0) g/dl Hct 45.9 40.0 L (42.0-52.0) % Plt Count 335 297 (130-400) K/uL BMP 10/12/23 10/13/23 20:40 04:23 Sodium 140 140 Potassium 3.5 3.8 Chloride 104 107 Carbon Dioxide 25 25 BUN 16 12 Creatinine 1.03 0.76 Glucose 89 103 H Calcium 10.0 8.8 Liver Function 10/12/23 Range/Units 20:40 Total Bilirubin 0.3 (0.2-1.0) mg/dl AST 20 (13-39) U/L ALT 16 (7-52) U/L Alkaline Phosphatase 83 (34-104) U/L Albumin 5.2 H (3.4-5.0) gm/dl Medications Administered Current Inpatient Medications Acetaminophen (Acetaminophen 325 Mg Tab) 650 mg PO Q4H PRN PRN Reason: Pain or Fever Stop: 11/12/23 00:29 Diltiazem HCl 125 mg/ Dextrose 125 mls @ 10 mls/hr IV .[id number] [facility]; Protocol Stop: 11/11/23 21:44 Last Titration: 10/13/23 13:00 Dose: 0 mg/hr, 0 mls/hr Heparin Sodium/Dextrose (Heparin Sodium/Dextrose) 25,000 units in 500 mls @ 31 mls/hr IV .Q16H8M [facility]; Protocol Stop: 11/12/23 00:29 Last Titration: 10/13/23 07:14 Dose: 1,550 units/hr, 31 mls/hr Metoprolol Tartrate (Metoprolol Tartrate 25 Mg Tab) 25 mg PO QAM [facility] Stop: 11/12/23 09:59 Last Admin: 10/13/23 11:10 Dose: 25 mg Nitroglycerin (Nitroglycerin Sl 0.4 Mg/Tab Tab) 0.4 mg SL Q5M PRN PRN Reason: Chest Pain Stop: 11/12/23 00:29 Polyethylene Glycol (Polyethylene (Miralax) 17 Gm Pack) 17 gm PO DAILY PRN PRN Reason: Constipation Stop: 11/12/23 00:29
[2023-10-13 17:32] LABS: BUN Creatinine Ratio 9.7 (10-20); Calcium 9.6 mg/dl (8.6-10.3); Est GFR (African American) 93.1 ml/min; Est GFR (Non-African American) 80.3 ml/min; Potassium 3.9 mmol/L (3.5-5.1)
[2023-10-13 17:39] LABS: Troponin I High Sensitivity 2.3 pg/ml (0-20)
[2023-10-13] MEDS ORDERED: MAGNESIUM SULFATE / D5W 1 GM/100 ML BAG IV ONE (17:43)
[2023-10-13] MEDS ORDERED: METOPROLOL TARTRATE 25 MG TAB PO ONE (17:45)
[2023-10-14 06:25] LABS: Basophils # (auto) 0.05 K/uL (0.00-0.20); Basophils % (auto) 0.6 %; Eosinophils # (auto) 0.25 K/uL (0.00-0.50); Hematocrit (blood only) 45.2 % (42.0-52.0); Hemoglobin 15.3 g/dl (14.0-18.0); Immature Granulocytes # (auto) 0.02 K/uL (0.01-0.20); Immature Granulocytes % (auto) 0.2 %; Lymphocytes % (auto) 34.1 %; Mean Corpuscular Hemoglobin 29.9 pg (25.0-34.0); Mean Corpuscular Hgb Conc 33.8 g/dL (32.0-36.0); Mean Corpuscular Volume 88.3 fL (80.0-100.0); Mean Platelet Volume 9.4 fL (9.4-12.4); Monocytes # (auto) 0.73 K/uL (0.11-0.59); Monocytes % (auto) 8.9 %; Neutrophils # (auto) 4.37 K/uL (1.40-6.50); Neutrophils % (auto) 53.2 %; Platelet Count 292 K/uL (130-400); RDW Coefficient of Variation 12.5 % (11.5-14.5); RDW Standard Deviation 40.7 fL (36.4-46.3); Red Blood Count 5.12 M/uL (4.70-6.10); White Blood Count 8.22 K/ul (4.8-10.8)
[2023-10-14 06:35] LABS: Magnesium 2.4 mg/dl (1.7-2.4); Phosphorus 3.4 mg/dl (2.5-4.9)
[2023-10-14] MEDS: dilTIAZem HCL 125 MG in DEXTROSE 5% 100 ML IV SCH ×2 (06:54→08:26)
[2023-10-14 07:04] LABS: Partial Thromboplastin Ratio 2.6
[2023-10-14 08:12] LABS: Partial Thromboplastin Time 74.2 Seconds (21.0-31.0)
[2023-10-14] MEDS: METOPROLOL TARTRATE 25 MG TAB PO SCH (08:20)
--- NOTE | 2023-10-14 08:28 | Cardiology Progress Note ---
Date of Service October 14, 2023 Assessment & Plan Admission and Anticipated Discharge Date Admission Date: October 12, 2023 Supervising Physician Co-Signing Physician Notes Attending Staff: Pt seen and examined with AP Staff Concur with observations and plans 42 yo man presenting with palpitations and lightheadedness * ETOH use * EKG - afib RVR * Ventricular rate 160 BPM * IV Cardizem + Heparin * CXR - clear * EKG * Troponin - negative * K+ 3.5 * Mag 2 * TSH is pending * Tox - Pending * No OTC meds * No OTC stimulants Events Overnight: -Telemetry - reverted to NSR Subjective: -No complaints Plans: * Pt now in NSR * ECHO - LVEF 55-60% * TSH - 1.861 * Tox - will discuss with patient * Diltiazem -STOP/OFF * Start Toprol XL 25 mg po per day * Kdur 20 meq po per day * Daily PO Magnesium supplementation - Magnesium Oxide 400 mg po per day or Slow Mag 64 (OTC) * + Strong family hx of Afib * No sx of CVA * CHADs Vasc - 0; risk of bleeding appeared to be lower than risk of CVA (though both are low) * Plans for 1 month of systemic anticogulation with DOAC - Apixiban 5 mg po BID * Check Zio patch as an outpt to determine Afib burden * Plans for outpt Cardiology evaluation/EP evaluation * Please call back with any additional question Neri Thornton Subjective Events Overnight: Reverted to NSR Subjective: No complaints Review of Systems Review of Systems: All systems reviewed & are unremarkable except as noted in HPI & below Physical Exam Physical Exam: As per Attending Lock Maintenance Supervisor Dr. Thornton No Elevation in JVP S1S2 No Murmur CTA B No C/C/E Warm and perfusing Results & Data Vital Signs (Past 12 Hours) Vital Signs Temp Pulse Pulse Resp BP Pulse Ox O2 Del Method 10/14/23 04:18 36.6 C 58 L 17 124/82 100 Room Air 10/14/23 01:36 64 10/14/23 00:40 36.7 C 76 14 118/86 98 Room Air Laboratory Results Cardiac Enzymes 10/13/23 10/13/23 Range/Units 10:59 17:02 Troponin I High Sens 2.6 2.3 (0-20) pg/ml Coagulation 10/13/23 10/14/23 Range/Units 07:03 05:44 APTT 52.1 H* 74.2 H* (21.0-31.0) Seconds CBC 10/14/23 Range/Units 05:44 WBC 8.22 (4.8-10.8) K/ul RBC 5.12 (4.70-6.10) M/uL Hgb 15.3 (14.0-18.0) g/dl Hct 45.2 (42.0-52.0) % Plt Count 292 (130-400) K/uL Neut # (Auto) 4.37 (1.40-6.50) K/uL Lymph # (Auto) 2.80 (1.20-3.40) K/uL [place] # (Auto) 0.73 H (0.11-0.59) K/uL Eos # (Auto) 0.25 (0.00-0.50) K/uL Baso # (Auto) 0.05 (0.00-0.20) K/uL Comprehensive Metabolic Panel 10/13/23 Range/Units 17:02 Sodium 137 (136-145) mmol/L Potassium 3.9 (3.5-5.1) mmol/L Chloride 104 (98-107) mmol/L Carbon Dioxide 27 (21-32) mmol/L BUN 11 (6-23) mg/dl Creatinine 1.13 D (0.6-1.4) mg/dl Glucose 115 H (70-99(Fasting)) mg/dl Calcium 9.6 (8.6-10.3) mg/dl Intake and Output 10/13/23 10/14/23 10/14/23 22:59 06:59 14:59 Intake Total 772.650 / 2820.250 700 / 2820.250 454.15 / 454.15 Balance 772.650 / 2820.250 700 / 2820.250 454.15 / 454.15 Intake: IV 532.650 / 1880.250 454.15 / 454.15 Heparin Sodium/Dextrose 25,000 313.483 / 500.000 454.15 / 454.15 units In 500 ml @ 1,550 UNITS/ HR 31 mls/hr IV .Q16H8M [facility] Rx# :[id number] Magnesium Sulfate / D5w 1 gm In 200 / 300 100 ml @ 50 mls/hr IV ONE ONE Rx#:[id number] dilTIAZem HCL 125 mg In 19.167 / 80.250 0 / 0 Dextrose 5% 100 ml @ 5 MG/HR 5 mls/hr IV .Q24H [facility] Rx#: [id number] Oral 240 / 940 700 / 940 Other: # Unmeasured Voids 1 1 Weight 82.5 kg Weight Measurement Method Built in Bedscale Medications Administered Current Inpatient Medications Acetaminophen (Acetaminophen 325 Mg Tab) 650 mg PO Q4H PRN PRN Reason: Pain or Fever Stop: 11/12/23 00:29 Diltiazem HCl 125 mg/ Dextrose 125 mls @ 0 mls/hr IV .Q0M [facility]; Protocol Stop: 11/11/23 21:44 Last Titration: 10/14/23 07:03 Dose: 0 mg/hr, 0 mls/hr Heparin Sodium/Dextrose (Heparin Sodium/Dextrose) 25,000 units in 500 mls @ 31 mls/hr IV .Q16H8M [facility]; Protocol Stop: 11/12/23 00:29 Last Titration: 10/14/23 08:24 Dose: 1,450 units/hr, 29 mls/hr Metoprolol Tartrate (Metoprolol Tartrate 25 Mg Tab) 25 mg PO QAM [facility] Stop: 11/12/23 09:59 Last Admin: 10/14/23 08:20 Dose: 25 mg Nitroglycerin (Nitroglycerin Sl 0.4 Mg/Tab Tab) 0.4 mg SL Q5M PRN PRN Reason: Chest Pain Stop: 11/12/23 00:29 Polyethylene Glycol (Polyethylene (Miralax) 17 Gm Pack) 17 gm PO DAILY PRN PRN Reason: Constipation Stop: 11/12/23 00:29
--- NOTE | 2023-10-14 09:08 | Electrocardiogram Report ---
Test Reason : Blood Pressure : / mmHG Vent. Rate : 053 BPM Atrial Rate : 053 BPM P-R Int : 158 ms QRS Dur : 100 ms QT Int : 412 ms P-R-T Axes : 058 091 049 degrees QTc Int : 386 ms Sinus bradycardia Rightward axis Borderline ECG When compared with ECG of 13-OCT-2023 04:59, Sinus rhythm has replaced Atrial fibrillation Vent. rate has decreased BY 37 BPM Artifact no longer present Confirmed by Keshav Arellano ([id number]) on 10/14/2023 9:07:56 AM Referred By: REFERRED SELF Confirmed By:Keshav Arellano
[2023-10-14] MEDS ORDERED: APIXABAN 5 MG TABLET PO SCH (09:15)
[2023-10-14] MEDS: HEPARIN SODIUM/DEXTROSE 25,000 UNITS/500 ML BAG IV SCH (10:03)
--- NOTE | 2023-10-14 11:48 | Hospitalist Progress Note ---
Date of Service October 14, 2023 Assessment & Plan (1) Rapid atrial fibrillation: Plan: 42M with past med history significant for migraines, presents with palpitations found to be in rapid A-fib. Rapid A-fib New onset ER started on Cardizem drip which will be continued We will start on IV heparin while patient in the hospital Monitoring telemetry-remains in atrial fibrillation but the rate is seems to be controlled Serial cardiac enzymes are unremarkable Echocardiogram-LV is normal in size, EF 55 to 60%, RV systolic function is normal, left atrial size is normal, right atrial size and normal, there is mitral mild mitral regurgitation Consult cardiology -appreciate input and recommendation We will continue Cardizem drip for now Metoprolol tartrate has been added We will check and correct electrolytes Reverted to sinus rhythm. We will discontinue Cardizem drip and start with Toprol-XL 25 mg from tomorrow He will have Eliquis for 1 month and Zio patch for 1 month Will be evaluated by reference and instruction librarian down the line DVT prophylaxis IV heparin Disposition telemetry floor Full code Admission and Anticipated Discharge Date Admission Date: October 12, 2023 Subjective 10/13/2023 The patient was seen and examined in ICU in the setting of PCU He was admitted with palpitation and dizziness with ambulation and also frequen cy of micturition Noted to have A-fib with RVR Has been feeling much better with decreasing heart rate since admission Denies any other symptom 10/14/2023 The patient was seen and examined in ICU in the setting of PCU in presence of the He remains stable and is reverted to sinus rhythm Denies any symptoms Will be discharged home this afternoon Review of Systems Review of Systems: All systems reviewed and are unremarkable except as noted below Physical Exam Physical Exam: Lying in bed comfortably Constitutional: average body habitus; not ill appearing Eyes: PERRL, conjunctivae normal, anicteric sclerae ENMT: external ear and nose normal, oropharynx normal Neck: trachea midline, no thyromegaly Respiratory: no respiratory distress Auscultation: lungs clear to auscultation bilaterally Cardiovascular: Rate/Rhythm: regular rate and regular rhythm; not tachycardic Heart Sounds: normal S1 and normal S2; no murmur Extremities: no edema Gastrointestinal (Abdomen): Inspection/Auscultation: normal bowel sounds; abdomen not distended Percussion/Palpation: abdomen soft; abdomen nontender Musculoskeletal: No acute arthritis involving any of the joint Neurologic: normal touch/pain/proprioception and moves all extremities; no focal motor deficits Psychiatric: A+Ox3, euthymic affect Lymphatic: no cervical or axillary lymphadenopathy Results & Data Results & Data Vital Signs (Past 12 Hours) Vital Signs Temp Pulse Pulse Resp BP BP Pulse Ox 10/14/23 08:35 36.7 C 63 16 118/72 97 10/14/23 04:18 36.6 C 58 L 17 124/82 100 10/14/23 01:36 64 10/14/23 00:40 36.7 C 76 14 118/86 98 O2 Del Method 10/14/23 08:35 Room Air 10/14/23 04:18 Room Air 10/14/23 01:36 10/14/23 00:40 Room Air Laboratory Results Short CBC 10/14/23 Range/Units 05:44 WBC 8.22 (4.8-10.8) K/ul Hgb 15.3 (14.0-18.0) g/dl Hct 45.2 (42.0-52.0) % Plt Count 292 (130-400) K/uL BMP 10/13/23 17:02 Sodium 137 Potassium 3.9 Chloride 104 Carbon Dioxide 27 BUN 11 Creatinine 1.13 D Glucose 115 H Calcium 9.6 Medications Administered Current Inpatient Medications Acetaminophen (Acetaminophen 325 Mg Tab) 650 mg PO Q4H PRN PRN Reason: Pain or Fever Stop: 11/12/23 00:29 Apixaban (Apixaban 5 Mg Tablet) 5 mg PO BID [facility] Stop: 11/13/23 09:14 Last Admin: 10/14/23 10:31 Dose: 5 mg Metoprolol Succinate (Metoprolol Succ 25mg Ext Rel Tab) 25 mg PO QAM [facility] Stop: 11/14/23 08:59 Metoprolol Tartrate (Metoprolol Tartrate 25 Mg Tab) 25 mg PO QAM [facility] Stop: 11/12/23 09:59 Last Admin: 10/14/23 08:20 Dose: 25 mg Nitroglycerin (Nitroglycerin Sl 0.4 Mg/Tab Tab) 0.4 mg SL Q5M PRN PRN Reason: Chest Pain Stop: 11/12/23 00:29 Polyethylene Glycol (Polyethylene (Miralax) 17 Gm Pack) 17 gm PO DAILY PRN PRN Reason: Constipation Stop: 11/12/23 00:29
--- OUTSIDE RECORDS SUMMARY | 2023-10-15 00:16 | External Medical Summary | Summary of Care ---
Author Name Unknown Organization [facility] Address [address] [place] [address] Phone [phone] Care Team Providers Care Biological Science Technician Fish Name Role Phone Art Patel MD Primary Care Provider + Encounter Details Date Type Department Care Team Description 08/26/2023 Result Scan Unspecified Department Art Patel MD [address] [place] [address] <No scans attached> Allergies Active Allergy Reactions Severity Noted Date Comments Penicillins Rash 06/10/2015 Last dose as a kid documented as of this encounter (statuses as of 08/28/2023) Medications No known medicationsdocumented as of this encounter (statuses as of 08/28/2023) Active Problems Problem Noted Date Migraine without aura and without status migrainosus, not intractable 01/30/2016 Palpitations 07/06/2015 Routine general medical examination at a health care facility 06/20/2015 documented as of this encounter (statuses as of 08/28/2023) Resolved Problems Problem Noted Date Resolved Date KAYLYNN (generalized anxiety disorder) 01/30/2016 03/11/2016 documented as of this encounter (statuses as of 08/28/2023) Immunizations Name Administration Dates Next Due Covid-19 Ad26, Single Dose (Sven/J&J) 03/05/2021 Seasonal Influenza, PF, 6 mo ns & Above, IM , (Flulaval) 11/08/2022,09/15/2021,09/25/2019, 0 18,11/20/2017 TDAP (age 10 and older)(Boostrix) 05/11/2010 documented as of this encounter Social History Tobacco Use Types Packs/Day Years Used Date Smoking Tobacco: Never Smokeless Tobacco: Never Alcohol Use Standard Drinks/Week Comments Yes 0 (1 standard drink = 0.6 oz pur e alcohol) very rare Food Insecurity Answer Date Recorded Within the past 12 months, y ou worried that your food would run out before you got money to buy more. Never true 08/19/2023 Within the past 12 months, t he food you bought just didn't last and you didn't have money to get more. Never true 08/19/2023 Sex Assigned at Date Recorded Male 08/19/2023 2:25 PM E [employer] Job Start Date Occupation Industry Not on file Not on file Not on file documented as of this encounter Plan of Treatment Health Maintenance Due Date Last Done Comments Hepatitis B (1 of 3 - 3-dose series) 1981 HIV Screening 1996 Hepatitis C Screening 1999 Depression Screening 05/15/2017 05/15/2016 DTaP,Tdap,and Td Vaccines (2 - Td or Tdap) 05/11/2020 05/11/2010 COVID-19 Vaccine (2 - Booster for Sven series) 04/30/2021 03/05/2021 Influenza Vaccine (FLU shot) (#1) 2023 11/08/2022, 09/15/2021, 09/25/2019, Additional history exists Lipid Panel 02/05/2028 08/26/2023, 02/04/2023 GARDASIL-HPV IMMUNIZATION SERIES Aged Out No longer eligible based on patient's age to complete this topic MENINGOCOCCAL (MENACTRA/MENVEO) Aged Out No longer eligible based on patient's age to complete this topic Pneumococcal Vaccine: Pediatrics (0 to 5 Years) and At-Risk Patients (6 to 64 Years) Aged Out No longer eligible based on patient's age to complete this topic documented as of this encounter Medical Devices Not on filedocumented as of this encounter Procedures Procedure Name Priority Date/Time Associated Diagnosis Comments OUTSIDE LAB RESULTS 08/26/2023 documented in this encounter Results * OUTSIDE LAB RESULTS (08/26/2023) 08/26/2023 Art Patel MD LABORATORY documented in this encounter Care Teams Biological Science Technician Fish Relationship Specialty Start Date End Date Art Patel MD [address] [place] [id number] PCP - General Family Medicine 06/20/15 documented as of this encounter
--- OUTSIDE RECORDS SUMMARY | 2023-10-15 00:16 | External Medical Summary | Summary of Care ---
Author Name Unknown Organization [facility] Address [address] [place] [address] Phone [phone] Care Team Providers Care Systems Integrator Name Role Phone Art Patel MD Primary Care Provider + Reason for Visit * Reason Comments Acute Pt reports concern o f elevated HR. Notices it happens with alcohol consumption. Encounter Details Date Type Department Care Team Description 08/20/2023 Office Visit Family Practice [facility] [address] [facility] [place] [address] [facility]el [facility] [address] [facility] [address] Palpitations*; Lipid screening; Screening for diabetes mellitus Allergies Active Allergy Reactions Severity Noted Date Comments Penicillins Rash 06/10/2015 Last dose as a kid documented as of this encounter (statuses as of 08/20/2023) Medications Medication Sig Dispensed Refills Start Date End Date Status Multiple Vitamin (MULTIVITAMINS) Capsule Daily 0 06/30/2015 08/20/2023 Discontinued (Medication List Clean Up) LORAzepam (ATIVAN) 2 MG Tablet 0 07/22/2016 08/20/2023 Discontinued (Medication List Clean Up) ofloxacin (OCUFLOX) 0.3 % ophthalmic solutionIndications: Acute bacterial conjunctivitis of left eye 1-2 drops in the affected eye four times a day x 5-7 days 5 mL 0 10/12/2016 08/20/2023 Discontinued (Medication List Clean Up) documented as of this encounter (statuses as of 08/20/2023) Active Problems Problem Noted Date Migraine without aura and without status migrainosus, not intractable 01/30/2016 Palpitations 07/06/2015 Routine general medical examination at a health care facility 06/20/2015 documented as of this encounter (statuses as of 08/20/2023) Resolved Problems Problem Noted Date Resolved Date KAYLYNN (generalized anxiety disorder) 01/30/2016 03/11/2016 documented as of this encounter (statuses as of 08/20/2023) Immunizations Name Administration Dates Next Due Covid-19 [...] on file documented as of this encounter Last Filed Vital Signs Vital Sign Reading Time Taken Comments Blood Pressure 126/82 08/20/2023 11:21 AM EDT Pulse 59 08/20/2023 11:21 AM EDT Temperature 36.4 C (97.6 F) 08/20/2023 11:21 AM E DT Respiratory Rate 20 08/20/2023 11:21 AM EDT Oxygen Saturation 99% 08/20/2023 11:21 AM EDT Inhaled Oxygen Concentration - - Weight 87.1 kg (192 lb 1 oz) 08/20/2023 11:21 AM EDT Height 188 cm (6' 2") 08/20/2023 11:21 AM EDT Body Mass Index 24.66 08/20/2023 11:21 AM EDT documented in this encounter Progress Notes * Art Patel MD - 08/20/2023 12:07 PM EDT SUBJECTIVE: Stanley Medina is a 42 year old male here for Acute (Pt reports concern of elevated HR. Notices ithappens with alcohol consumption. ) . Here to reestablish care. Has had intermittent palpitations briefly off and on for over 10 years. He had a cardiac workup including EKG and a stress echo in 2014 that was normal. One year ago after Dr. Drinking 4-6 drinks in a day the next day he had a brief episode of tachycardia up until the 150s at rest that lasted about 10 minutes before resolving. Since then he has had very rare alcohol only and has not had any recurrence prolonged palpitations.He exercises regularly running without any difficulty. No chest pain or shortness of breath with exertion. He feels like a skipped beat maybe 2 or 4 times a day. Pulse typically in the 50s or 60s. No fever, chills, chest pain, shortness of breath, headache, nausea, vomit, diarrhea, constipation or vision changes ROS: Negative except above. Past Medical History: Diagnosis Date Migraine without aura and without status migrainosus, not intractable 01/30/2016 Past Surgical History: Procedure Laterality Date DENTAL SURGERY PROCEDURE NEC MISCELLANEOUS ORDER ([facility] ONLY) skin biopsy knee-benign Social History Socioeconomic History Marital status: Spouse name: Not on file Number of children: Not on file Years of education: Not on file Highest education level: Not on file Occupational History Occupation: [employer] . Tobacco Use Smoking status: Never Smokeless tobacco: Never Substance and Sexual Activity Alcohol use: Yes Comment: very rare Drug use: Not on file Sexual activity: Yes Partners: Female control/protection: Condom Comment: , Roberto and [place] & ' consider vas. Other Topics Concern Not on file Social History Narrative Running, rare golf Social Determinants of Health Financial Resource Strain: Not on file Food Insecurity: No Food Insecurity Worried About Running Out of Food in the Last Year: Never true Ran Out of Food in the Last Year: Never true Transportation Needs: Not on file Physical Activity: Not on file Stress: Not on file Social Connections: Not on file Intimate Partner Violence: Not on file Housing Stability: Not on file Family History Problem Relation Age of Onset Atrial fibrillation Mother Jessi Hypertension Brother Heart Disorder Grandfather (Maternal) ?[place] 60s smoked/coal mine Heart Disorder Grandfather (Paternal) ?[place] 60s smoked /coal mine No current outpatient medications on file. No current facility-administered medications for this visit. Physical: BP 126/82 | Pulse 59 | Temp 36.4 C (97.6 F) (Tympanic) | Resp 20 | Ht 1.88 m (6' 2") | Wt 87.1 kg (192 lb 1 oz) | SpO2 99% | BMI 24.66 kg/m | BSA 2.13 m General-No apparent Distress Head, Eyes, Ears, Nose, Throat--Normocephalic, atraumatic Neck-Supple Lymph-no lymphadenopathy Lungs-Clear to Auscultation bilaterally Cardiovascular--Regular rate & Rhythm, +s1, s2, no murmur Abdomen-soft, nontender, nondistended + bowel sounds Extremities--no edema Neuro-alert & oriented x3 (R00.2) Palpitations (primary encounter diagnosis) Plan: TSH WITH FREE T4 IF INDICATED, CBC WITH WBC DIFFERENTIAL AND ANEMIA REFLEX WORKUP Suspect PVCs. Episode tachy 1 y ago more likely SVT--agree w/avoiding ETOH. Given age, health, no anticoag needed. If recurs will notify me. If persists >10-15 min will go to ER for eval counseled on diet/exercise Declined Tdap today (Z13.220) Lipid screening Plan: LIPID PANEL WITH DIRECT LDL IF TG IS HIGH (Z13.1) Screening for diabetes mellitus Plan: BASIC METABOLIC PANEL I spent a total of 30-39 minutes (exact time 36 mins) on the date of service in preparation, delivery, and documentation of the care provided to Stanley Medina excluding any time spent in the performance of separately billed services. (This note was completed using the dictation program Fluency Direct. As such, there may be misspellings, word substitutions, or other variations that should not change the essence of the clinical content of this encounter note.If there is need for further clarification, please direct questions to the provider listed above.) Art Patel MD documented in this encounter Nursing Notes * Kamilla Bains LPN - 08/20/2023 11:21 AM EDT The patient has been properly identified by confirmation of name and date of . Chief Complaint Patient presents with Acute Pt reports concern of elevated HR. Notices it happens with alcohol consumption. documented in this encounter Plan of Treatment Upcoming Encounters Date Type Specialty Care Team Description 08/25/2023 Office Visit Family Medicine Lisa Walters CRNP [address] [place] [address] Scheduled Orders Name Type Priority Associated Diagnoses Orde r Schedule LIPID PANEL WITH DIRECT LDL IF TG IS HIGH Lab Routine Lipid screening Ordered: 08/20/2023 BASIC METABOLIC PANEL Lab Routine Screening for diabetes mellitus Ordered: 08/20/2023 TSH WITH FREE T4 IF INDICATED Lab Routine Palpitations Ordered: 08/20/2023 CBC WITH WBC DIFFERENTIAL AND ANEMIA REFLEX WORKUP Lab Routine Palpitations Ordered: 08/20/2023 Health Maintenance Due Date Last Done Comments Hepatitis B (1 of 3 - 3-dose series) 1981 HIV Screening 1996 Hepatitis C Screening 1999 Depression Screening 05/15/2017 05/15/2016 DTaP,Tdap,and Td Vaccines (2 - Td or Tdap) 05/11/2020 05/11/2010 COVID-19 Vaccine (2 - Booster for Sven series) 04/30/2021 03/05/2021 Influenza Vaccine (FLU shot) (#1) 2023 11/08/2022, 09/15/2021, 09/25/2019, Additional history exists Lipid Panel 02/05/2028 02/04/2023 GARDASIL-HPV IMMUNIZATION SERIES Aged Out No [...] Not on filedocumented as of this encounter Visit Diagnoses Diagnosis Palpitations- Primary Lipid screening Screening for lipoid disorders Screening for diabetes mellitus documented in this encounter Care Teams Systems Integrator Relationship Specialty Start Date End Date Art Patel MD [address] [place] [address] PCP - General Family Medicine 06/20/15 documented as of this encounter
[2023-10-15] MEDS ORDERED: METOPROLOL SUCC 25MG EXT REL TAB PO SCH (09:00)
--- NOTE | 2023-10-15 13:16 | Discharge Summary ---
Date of Service October 15, 2023 Admission HPI Per Admitting Provider 42-year-old male with past med history significant for migraines, presents with palpitations and found to be in rapid A-fib. Patient states around 7 PM he noticed palpitations and felt some lightheaded and as they were not subsiding came to the ER. No chest pain or shortness of breath. No cough. No fevers. No nausea. No abdominal pain. Normal bowel and bladder movements. No blood in the stools or hematuria. Patient states about a year ago he had palpitations and also 1 more time in between but this time they persisted longer time so came to the ER. Had couple of beers yesterday. He states he noticed it happens when he drinks alcohol. Says he jogs every day in the morning Past medical history. As mentioned above Past surgical history. Dental surgery. Social history. . No smoking. Alcohol rarely. Family history. Mother had atrial fibrillation. Brother has hypertension. Maternal grandfather had OR. Paternal grandfather had OR. Admission Exam Per Admitting Provider Physical Exam: General- not in distress. Head- atraumatic Eyes- PERRL. ENT- oropharynx clear Neck- supple, no JVD. Lungs- clear to auscultation, no wheezing or crackles. Heart- irregular rhythm;tachycardia, no murmur, no gallop. Abdomen- normal bowel sounds, soft, nontender, no distension. Extremities- no pretibial edema, no erythema seen. Neuro- alert, oriented x 3; PERRL, no facial palsy; no dysarthria; moves extremities. Skin- warm & dry Principal Diagnosis Paroxysmal atrial fibrillation with RVR Discharge Exam Lying in bed comfortably Constitutional average body habitus; not ill appearing Eyes PERRL, conjunctivae normal, anicteric sclerae ENMT external ear and nose normal, oropharynx normal Neck trachea midline, no thyromegaly Respiratory no respiratory distress Auscultation: lungs clear to auscultation bilaterally Cardiovascular Rate/Rhythm: regular rate, regular rhythm and + irregularly irregular; not tachycardic Heart Sounds: normal S1 and normal S2; no murmur Extremities: no edema Gastrointestinal (Abdomen) Inspection/Auscultation: normal bowel sounds; abdomen not distended Percussion/Palpation: abdomen soft; abdomen nontender Neurologic normal touch/pain/proprioception and moves all extremities; no focal motor deficits Psychiatric A+Ox3, euthymic affect Lymphatic no cervical or axillary lymphadenopathy Discharge Data Allergies Allergy/AdvReac Type Severity Reaction Status Date / Time Penicillins Allergy Intermediate RASH Verified 10/12/23 21:22 Consultations 10/12/23 22:03 ED Decision to Admit Stat 10/13/23 08:00 Consult Cardiology Routine Hospital Course (1) Rapid atrial fibrillation: 42M with past med history significant for migraines, presents with palpitations found to be in rapid A-fib. Rapid A-fib New onset ER started on Cardizem drip which will be continued We will start on IV heparin while patient in the hospital Monitoring telemetry-remains in atrial fibrillation but the rate is seems to be controlled Serial cardiac enzymes are unremarkable Echocardiogram-LV is normal in size, EF 55 to 60%, RV systolic function is normal, left atrial size is normal, right atrial size and normal, there is mitral mild mitral regurgitation Consult cardiology -appreciate input and recommendation We will continue Cardizem drip for now Metoprolol tartrate has been added We will check and correct electrolytes Reverted to sinus rhythm. We will discontinue Cardizem drip and start with Toprol-XL 25 mg from tomorrow He will have Eliquis for 1 month and Zio patch for 1 month Will be evaluated by toddler guide down the line DVT prophylaxis IV heparin Disposition telemetry floor Full code Total Time Total Time Spent Total Time Spent (In Minutes): 35 minutes Discharge Plan Discharge Items Patient Disposition: Home - Self-Care Reason For Visit: RAPID A FIB Discharge Diagnosis: Paroxysmal atrial fibrillation with RVR Condition on Discharge: Good Activity: Resume your previous activity Non-emergency contact: Primary Care Provider Call non-emergency contact if: you have any medication questions and your symptoms worsen Follow-up/Referrals: Art Patel MD [Primary Care Provider] - (Date & Time 10/20/2023 9:00 AM Provider Art Patel MD Department Family Practice [facility] ) Syd Moseley [Physician Mobile Device Developer] - (Date & Time *ZIO patch placement* 10/21/2023 8:15 AM Provider NURSE CARDIO [facility] Department Cardiac Studies, [facility] Date & Time 12/03/2023 11:30 AM Provider Syd Moseley PAElviaC Department Cardiology, [facility] ) Diet: Heart Healthy Addtl Attending Provider Instructions: Please take precautions to avoid falls Take your medications as advised You will have a Zio patch from your doctor's office Take anticoagulation -Eliquis for at least 1 month and further decision to continue or not will be evaluated as an outpatient Please give appointments with the healthcare providers Pending Studies at Discharge: No Stand-Alone Forms: My [facility], Smoking Cessation Medications and DC Order Prescriptions: New metoprolol succinate 25 mg Tablet Extended Release 24 Hr 25 mg PO QAM Qty: 30 0RF Eliquis 5 mg Tablet 5 mg PO BID Qty: 60 0RF potassium chloride [K-Tab] 20 mEq tablet extended release 20 meq PO DAILY Qty: 30 0RF magnesium oxide 400 mg (241.3 mg magnesium) tablet 400 mg PO DAILY Qty: 30 0RF Discharge Orders: Discharge Order (Routine); Ordered 10/14/23 Ordered By: Edwin Short/Other Patient Handouts: AFib Admission Data Admit Date/Time: 10/12/23 23:09 Attending Provider: Edwin Padron Admit Provider: John Cobb Primary Care Provider: Art Patel Other Providers: John Cobb Other Interventions: Discharge Summary Assessment (RN) Last Done: 10/14/23 13:00
== END 2023-10-14 13:32 | disposition home or self-care (01) | DRG 310 ==
LOC: ED 20:09 → EDINP 23:09 → 1E 10-13 00:31
DX: Z88.0 Allergy status to penicillin; G43.909 Migraine, unspecified, not intractable, without status migrainosus; Z82.49 Family history of ischemic heart disease and other diseases of the circulatory system; I48.0 Paroxysmal atrial fibrillation; F17.210 Nicotine dependence, cigarettes, uncomplicated